=== PATIENT | male | born 1960 | race Caucasian/White ===

== ENCOUNTER 2018-03-27 09:46 | Emergency (ER) | payer OTHER | END 2018-03-27 11:47 | disposition home or self-care (01) | LOC: ERS 09:46 | DX: M50.223 Other cervical disc displacement at C6-C7 level (principal); I10 Essential (primary) hypertension; E78.5 Hyperlipidemia, unspecified; Z79.899 Other long term (current) drug therapy; Z79.82 Long term (current) use of aspirin | CPT/HCPCS: 99283 ==

== ENCOUNTER 2018-05-30 08:39 | Outpatient (CLI) | payer OTHER ==
--- NOTE | 2018-05-30 13:01 | MRI ---
MRI RIGHT SHOULDER WITHOUT CONTRAST: Date: 05/30/18 HISTORY: S49.91XD injury of right shoulder. Fall. COMPARISON: None. FINDINGS: Biceps Tendon: There is perching of the biceps tendon upon the lesser tuberosity through a tear of the superior radha ohumeral ligament portion of the biceps ciro. Moderate intraarticular tendinosis. Labrum: There is tearing throughout the superior and posterior labrum. Rotator Cuff: Moderate tendinosis rotator cuff. Low grade bursal surface fraying supraspinatus tendon. No full thic kness perforation. No significant undersurface partial tearing. There is, however, undersurface parti al tearing of the deep fibers of the craniad one-half of the subscapularis. Bones: Large subchondral cyst of the posterior glenoid with overlying high grade cartilage fissuring. This i s adjacent to a labral tear. Moderate degenerative disease acromioclavicular joint. Type I acromion. Muscles: Muscle bulk is normal without significant atrophy. IMPRESSION: 1. Perching of the biceps tendon upon the lesser tuberosity through a tear of the superior glenohume ral ligament portion of the biceps ciro and through undersurface partial tear of the subscapularis. 2. Tearing throughout the superior and posterior labrum. 3. Large subcortical cyst of the glenoid with overlying high grade cartilage fissuring. The subcorti lavon cyst measures 1.2 x 0.7 cm (craniocaudad x AP). There is small adjacent humeral head osteophyte. 4. Mild tendinosis of the supraspinatus and infraspinatus tendons without full thickness perforation . No significant undersurface partial tearing. POS: [facility]
== END 2018-05-30 08:40 | disposition home or self-care (01) ==
LOC: MRI 08:39
PROVIDERS: ATTEND Family Medicine
DX: S49.91XD Unspecified injury of right shoulder and upper arm, subsequent encounter (principal); S46.011A Strain of muscle(s) and tendon(s) of the rotator cuff of right shoulder, initial encounter; S43.491A Other sprain of right shoulder joint, initial encounter; M85.611 Other cyst of bone, right shoulder; M67.813 Other specified disorders of tendon, right shoulder; M25.711 Osteophyte, right shoulder

== ENCOUNTER 2019-01-16 02:26 | Outpatient (CLI) | payer OTHER | END 2019-01-16 02:27 | disposition home or self-care (01) | LOC: LABBT 02:26 | PROVIDERS: ATTEND Neurological Surgery | DX: Z01.810 Encounter for preprocedural cardiovascular examination (principal); M54.12 Radiculopathy, cervical region | CPT/HCPCS: 93005; 93010 ==

== ENCOUNTER 2019-01-23 05:31 | Day surgery (SDC) | payer OTHER ==
[2019-01-16 09:08] VITALS: BMI 30.1
--- NOTE | 2019-01-22 13:17 | HP ---
HISTORY OF PRESENT ILLNESS: Mr. Morris is a pleasant 58-year-old man, known to us for evaluation of cervical radiculopathy in a C7 fashion to the right upper extremity with severe triceps weakness. He has an MRI from [place] that reveals significant stenosis to the right that would match his symptoms well. He has treated this with injections, therapy, and medications with only limited improvement and hopes to move forward now with surgical intervention. PAST MEDICAL HISTORY: Significant for hypercholesterolemia, hypertension. PAST SURGICAL HISTORY: Lumbar laminectomy, unspecified right ankle surgery. CURRENT MEDICATIONS: 1. Metoprolol. 2. Amlodipine. 3. Crestor. ALLERGIES: NO KNOWN DRUG ALLERGIES. PHYSICAL EXAMINATION: GENERAL: The patient is alert and oriented x3. EXTREMITIES: Upper extremity motor exam; he has 3+ out of 5 strength in the right triceps muscle. Left upper extremity is 5/5 strength in all movements. He also has a finger drop in the right hand. Reflexes equal and present at the patella and triceps on the left. Absent of the triceps, but present at the biceps on the right. ASSESSMENT: Cervical radiculopathy and weakness. PLAN: Dr. Bah met with the patient, reviewed imaging, and advocated for C6-7 ACDF. He explained to the patient the risks, benefits, and alternatives to the procedure. The patient expressed understanding and elected to move forward with surgery as discussed. I do believe the patient is mentally competent and capable of making medical decisions for himself. We will move forward with surgery as planned. Job ID: [id number]
[2019-01-23] MEDS ORDERED: Thrombin 5000 UNITS/5 ML VIAL ONE (06:19)
[2019-01-23] MEDS ORDERED: Lidocaine 2% Jelly 5 ML TUBE ONE (06:28)
[2019-01-23] MEDS ORDERED: Fentanyl 100 MCG/2 ML VIAL ONE ×2 (06:28→08:18)
[2019-01-23] MEDS ORDERED: Midazolam HCl 2 mg/2 ml Vial ONE (06:45)
[2019-01-23] MEDS ORDERED: Tamsulosin HCl 0.4 MG CAP ONE (08:21)
--- NOTE | 2019-01-23 11:18 | OP ---
DATE OF PROCEDURE: 01/23/2019 CARTOGRAPHIC TECHNICIAN: Pritesh Trujillo PA-C INDICATION: Pain and weakness. DIAGNOSIS: Cervical radiculopathy. PROCEDURE PERFORMED: Anterior cervical diskectomy and fusion, C6-C7. ANESTHESIA: General. DESCRIPTION OF PROCEDURE: The patient was brought into the operating room and placed under general anesthesia. He was flipped from the supine to prone position on the operating room table. A linear incision was planned at the C6-C7 area. This area was prepped and draped. After an appropriate preoperative pause, the incision was created. The underlying platysma muscle was identified and incised. A blunt tissue plane anterior to the sternocleidomastoid muscle was used to gain access to the prevertebral space. Self-retaining retractors were placed in the wound for optimal exposure. After confirming the appropriate level with C-arm fluoroscopy, an annulotomy was performed in the C6-C7 disk space. All disk material as well as anterior and posterior osteophytes were removed. After complete decompression, a 7-mm lordotic PEEK cage packed with allograft and autograft material was placed within the interbody space. An anterior cervical plate was then fashioned to the front of spine and secured with a total of 4 fixed screws. Midline and lateral structures were inspected and found to be free from significant trauma. The wound was irrigated. Hemostasis was maintained throughout. The wound was then closed in anatomic layers and a pressure dressing was applied. There were no known procedural complications. Job ID: [id number]
[2019-01-23] MEDS ORDERED: Ondansetron PF 4 MG/2 ML Vial ONE (16:11)
[2019-01-23] MEDS ORDERED: Rocuronium Bromide 10 MG/ML (10ML VIAL) ONE (16:11)
[2019-01-23] MEDS ORDERED: ePHEDrine 50 MG/ML VIAL ONE (16:11)
[2019-01-23] MEDS ORDERED: PROPOFOL 200 MG/20 ML VIAL ONE (16:11)
[2019-01-23] MEDS ORDERED: PHENYLEPHRINE-NS 100 MCG/ML 10 ML SYRINGE ONE (16:11)
[2019-01-23] MEDS ORDERED: Lidocaine 1% PF 5 ML VIAL ONE (16:11)
[2019-01-23] MEDS ORDERED: Ketorolac Tromethamine 30 MG/ML VIAL ONE (16:11)
[2019-01-23] MEDS ORDERED: Dexamethasone 20 MG/5 ML VIAL ONE (16:11)
[2019-01-23] MEDS ORDERED: Glycopyrrolate 0.2 MG/ML 5 ML SYRINGE ONE (16:11)
== END 2019-01-23 10:20 | disposition home or self-care (01) ==
LOC: SDC 05:31
PROVIDERS: ATTEND Neurological Surgery
PROC: 0RG10A0 Fusion of Cervical Vertebral Joint with Interbody Fusion Device, Anterior Approach, Anterior Column, Open Approach (ICD-10-PCS; principal; 2019-01-23)
PROC: 0RT30ZZ Resection of Cervical Vertebral Disc, Open Approach (ICD-10-PCS; principal; 2019-01-23)
DX: M54.12 Radiculopathy, cervical region (principal); I10 Essential (primary) hypertension; E78.00 Pure hypercholesterolemia, unspecified; Z79.899 Other long term (current) drug therapy
CPT/HCPCS: 76000; C1713; C1776; J0131; J0690; J1100; J1885; J2001; J2250; J2405; J2704; J3010; J3490

== ENCOUNTER 2021-02-09 10:48 | Outpatient (CLI) | payer BC, OTHER ==
[2021-02-09 13:01] LABS: Anion Gap 17 mmol/L (10-20); BUN (Urea Nitrogen) 8 mg/dL (8.4-25.7); Calc. Creatinine Clearance 0 mL/min (70-130); Calcium 9.8 mg/dL (7.8-10.44); Carbon Dioxide 22 mmol/L (22-29); Chloride 98 mmol/L (98-107); Glucose 95 mg/dL (70-105); Potassium 4.6 mmol/L (3.5-5.1); Sodium 132 mmol/L (136-145)
[2021-02-09 17:54] LABS: SARS-CoV-2 PCR by NAA Not Detected (NotDetected)
== END 2021-02-09 10:49 | disposition home or self-care (01) ==
LOC: LABBT 10:48
PROVIDERS: ATTEND Neurological Surgery
DX: Z01.818 Encounter for other preprocedural examination (principal); Z20.822 Contact with and (suspected) exposure to COVID-19; M51.16 Intervertebral disc disorders with radiculopathy, lumbar region
CPT/HCPCS: 80048; 87635; U0003; U0005

== ENCOUNTER 2021-02-12 06:10 | Day surgery (SDC) | payer BC ==
[2021-02-11 11:57] VITALS: BMI 29.7
[2021-02-12] MEDS ORDERED: HYDROmorphone 0.5 MG/0.5 ML SYRINGE ONE ×2 (06:34→08:48)
[2021-02-12] MEDS ORDERED: Midazolam HCl 2 mg/2 ml Vial ONE (06:34)
[2021-02-12] MEDS ORDERED: Fentanyl 100 MCG/2 ML VIAL ONE (06:34)
[2021-02-12] MEDS ORDERED: Lidocaine 2% Jelly 5 ML TUBE ONE (06:53)
[2021-02-12] MEDS ORDERED: Thrombin 5000 UNITS/5 ML VIAL ONE (07:07)
[2021-02-12] MEDS ORDERED: EPINEPHrine 1 MG/ML AMP ONE (07:07)
[2021-02-12] MEDS ORDERED: Bupivacaine PF 0.5% 30 ML VIAL ONE (07:07)
[2021-02-12] MEDS ORDERED: Glycopyrrolate 0.2 MG/ML 5 ML SYRINGE ONE (07:42)
[2021-02-12] MEDS ORDERED: Rocuronium Bromide 10 MG/ML (10ML VIAL) ONE (07:42)
[2021-02-12] MEDS ORDERED: ePHEDrine Sulfate 50 MG/10 ML VIAL ONE (07:42)
[2021-02-12] MEDS ORDERED: PROPOFOL 200 MG/20 ML VIAL ONE (07:42)
[2021-02-12] MEDS ORDERED: Dexamethasone 20 MG/5 ML VIAL ONE (07:42)
[2021-02-12] MEDS ORDERED: Lidocaine 1% PF 5 ML VIAL ONE (07:42)
[2021-02-12] MEDS ORDERED: Ondansetron PF 4 MG/2 ML Vial ONE (07:42)
[2021-02-12] MEDS ORDERED: Tamsulosin HCl 0.4 MG CAP ONE (09:49)
[2021-02-12] MEDS ORDERED: traMADol HCl 50 MG TAB ONE (12:34)
== END 2021-02-12 12:40 | disposition home or self-care (01) ==
LOC: SDC 06:10
PROVIDERS: ATTEND Neurological Surgery
PROC: 0ST20ZZ Resection of Lumbar Vertebral Disc, Open Approach (ICD-10-PCS; principal; 2021-02-12)
PROC: 01NB0ZZ Release Lumbar Nerve, Open Approach (ICD-10-PCS; principal; 2021-02-12)
DX: M48.061 Spinal stenosis, lumbar region without neurogenic claudication (principal); M51.16 Intervertebral disc disorders with radiculopathy, lumbar region; E78.00 Pure hypercholesterolemia, unspecified; I10 Essential (primary) hypertension; Z79.82 Long term (current) use of aspirin; Z79.899 Other long term (current) drug therapy
CPT/HCPCS: 76000; J0171; J0690; J1100; J1170; J2250; J2405; J2704; J3010; S0020

== ENCOUNTER 2023-11-14 14:02 | Emergency (ER) | payer BC, OTHER | END 2023-11-14 15:39 | disposition home or self-care (01) | LOC: ERS 14:02 | DX: G89.29 Other chronic pain (principal); M25.511 Pain in right shoulder; I10 Essential (primary) hypertension; F17.220 Nicotine dependence, chewing tobacco, uncomplicated; Z79.82 Long term (current) use of aspirin; Z79.899 Other long term (current) drug therapy | CPT/HCPCS: 99283 ==

== ENCOUNTER 2023-11-24 12:54 | Outpatient (CLI) | payer OTHER | END 2023-11-24 12:55 | disposition home or self-care (01) | LOC: BICMRI 12:54 | PROVIDERS: ATTEND Family Medicine | DX: M50.10 Cervical disc disorder with radiculopathy, unspecified cervical region (principal); Z98.890 Other specified postprocedural states | CPT/HCPCS: 70210; 72141 ==

== ENCOUNTER 2024-02-14 15:12 | Outpatient (CLI) | payer BC ==
[2024-02-14 16:05] LABS: Hemoglobin 13.7 g/dL (13.5-17.5); Mean Corpuscular Hemoglobin 33.2 pg (27.0-33.0); Mean Corpuscular Volume 89.6 fl (81.2-95.1); Mean Platelet Volume 9.5 fl (7.4-10.4); Platelet Count 207 10x3/uL (150-450); RBC Distribution Width 12.4 % (11.5-14.5); Red Blood Cell (RBC) Count 4.13 10x6/uL (4.32-5.72); White Blood Cell (WBC) Count 7.9 10x3/uL (3.5-10.5)
[2024-02-14 16:22] LABS: Anion Gap 12 mmol/L (10-20); BUN (Urea Nitrogen) 12 mg/dL (8.4-25.7); Calc. Creatinine Clearance 0 mL/min (70-130); Calcium 9.3 mg/dL (7.8-10.44); Carbon Dioxide 23 mmol/L (23-31); Chloride 100 mmol/L (98-107); Estimated GFR 98; Glucose 95 mg/dL (80-115); Potassium 4.2 mmol/L (3.5-5.1); Sodium 131 mmol/L (136-145)
== END 2024-02-14 15:13 | disposition home or self-care (01) ==
LOC: LABBT 15:12
PROVIDERS: ATTEND Neurological Surgery
DX: Z01.818 Encounter for other preprocedural examination (principal); M54.12 Radiculopathy, cervical region
CPT/HCPCS: 80048; 85027; 93005; 93010

== ENCOUNTER 2024-02-14 16:00 | Inpatient (IN) | payer BC, OTHER ==
[2024-02-14 15:38] VITALS: BMI 31.5
[2024-02-21] MEDS ORDERED: CEFAZOLIN 2 GM VIAL ONE ×2 (07:25→11:51)
[2024-02-21] MEDS ORDERED: Sodium Chloride 0.9% 100 ML ONE ×2 (07:26→11:51)
[2024-02-21] MEDS ORDERED: Rocuronium Bromide 10 MG/ML (10ML VIAL) ONE (08:01)
[2024-02-21] MEDS ORDERED: Lidocaine 1% PF 5 ML VIAL ONE (08:01)
[2024-02-21] MEDS ORDERED: fentaNYL PF 100 MCG/2 ML SYRINGE ONE (08:01)
[2024-02-21] MEDS ORDERED: PROPOFOL 20 ML ONE (08:01)
[2024-02-21] MEDS ORDERED: Dexamethasone 20 MG/5 ML VIAL ONE (09:26)
[2024-02-21] MEDS ORDERED: Ondansetron PF 4 MG/2 ML Vial ONE (09:26)
[2024-02-21] MEDS ORDERED: fentaNYL 50 mcg/mL 1 mL Vial ONE (10:32)
== END 2024-02-21 12:44 | disposition home or self-care (01) | DRG 473 ==
LOC: SURG A 02-21 06:16 → EDSTATUS 02-21 16:00
PROVIDERS: ADMIT Neurological Surgery; ATTEND Neurological Surgery
PROC: 0RG10A0 Fusion of Cervical Vertebral Joint with Interbody Fusion Device, Anterior Approach, Anterior Column, Open Approach (ICD-10-PCS; principal; 2024-02-21)
PROC: 0RG40A0 Fusion of Cervicothoracic Vertebral Joint with Interbody Fusion Device, Anterior Approach, Anterior Column, Open Approach (ICD-10-PCS; 2024-02-21)
PROC: 0RB30ZZ Excision of Cervical Vertebral Disc, Open Approach (ICD-10-PCS; 2024-02-21)
PROC: 0RB50ZZ Excision of Cervicothoracic Vertebral Disc, Open Approach (ICD-10-PCS; 2024-02-21)
PROC: 01N10ZZ Release Cervical Nerve, Open Approach (ICD-10-PCS; 2024-02-21)
PROC: 00NW0ZZ Release Cervical Spinal Cord, Open Approach (ICD-10-PCS; 2024-02-21)
DX: M50.13 Cervical disc disorder with radiculopathy, cervicothoracic region (principal); I25.10 Atherosclerotic heart disease of native coronary artery without angina pectoris; E78.5 Hyperlipidemia, unspecified; I10 Essential (primary) hypertension; Z82.49 Family history of ischemic heart disease and other diseases of the circulatory system; Z79.899 Other long term (current) drug therapy; Z79.82 Long term (current) use of aspirin
CPT/HCPCS: C1713; C1889; J1100; J2405; J2704; J3010; J3490